=== PATIENT | male | born 1940 | race Caucasian/White ===

== ENCOUNTER 2022-11-11 07:08 | Day surgery (SDC) | payer OTHER ==
[~2022-11-11] VITALS: Ht 162.6 cm; Wt 68.0 kg
[~2022-11-11 07:08] MED LIST: CEFAZOLIN SOD 1 GM in D5W 50 ML IV ONE
[2022-11-11] MEDS ORDERED: BUPIVACAINE /PF 0.25% 30 ML VIAL INJ ONE (07:44)
[2022-11-11] MEDS ORDERED: fentaNYL CITRATE/PF 100 MCG/2 ML AMP ONE (07:44)
[2022-11-11] MEDS ORDERED: DESFLURANE 15 MIN GAS INH ONE (07:44)
[2022-11-11] MEDS ORDERED: SUCCINYLCHOLINE CHLORIDE 20 MG/ML(QUELICIN) ONE (07:44)
[2022-11-11] MEDS ORDERED: PROPOFOL 200MG/ 20ML VIAL (DIPRIVAN) IV ONE (07:44)
[2022-11-11] MEDS ORDERED: MIDAZOLAM HCL 5 MG/ML VIAL (VERSED) IV ONE (07:44)
[2022-11-11] MEDS ORDERED: LR 1,000 ML IV.SOLN IV ONE (07:44)
[2022-11-11] MEDS ORDERED: NS IRRIG SOLN 1000 ML IR ONE (07:44)
[2022-11-11] MEDS ORDERED: ceFAZolin SODIUM 1 GM VIAL ONE (07:44)
[2022-11-11] MEDS ORDERED: HYDROMORPHONE HCL IN 0.9% NACL 0.2 MG/ML DRIP IV ONE (07:44)
[2022-11-11] MEDS ORDERED: NS 1000 ML IV.SOLN IV ONE (07:44)
[2022-11-11] MEDS ORDERED: WATER FOR IRRIGATION,STERILE 1,000 ML IRRIG.SOLN IR ONE (07:44)
[2022-11-11] MEDS ORDERED: ROCURONIUM BROMIDE 10 MG/ML (ZEMURON) ONE (07:44)
[2022-11-11] MEDS ORDERED: ONDANSETRON HCL 4 MG/2 ML VIAL ONE (07:44)
[2022-11-11] MEDS ORDERED: SUGAMMADEX SODIUM 200 MG/2 ML VIAL IV ONE (07:44)
[2022-11-11] MEDS ORDERED: ACETAMINOPHEN I.V. 1000 MG 100 ML IV ONE (08:02)
[2022-11-11] MEDS ORDERED: D5/0.45 NS 1,000 ML IV SCH (10:15)
[2022-11-11] MEDS ORDERED: ACETAMINOPHEN 325 MG TABLET PO PRN (10:15)
[2022-11-11] MEDS ORDERED: HYDROmorphone 1 MG/ML INJ. CARTRIDGE IVP PRN ×3 (10:15)
[2022-11-11] MEDS ORDERED: HYDROcodone/ACETAMIN 5-325 MG TAB (NORCO/ VICODIN) PO PRN ×2 (10:15)
[2022-11-11] MEDS ORDERED: HYDROmorphone 2 MG/ML VIAL IVP PRN (10:15)
[2022-11-11] MEDS ORDERED: ONDANSETRON HCL 4 MG/2 ML VIAL IVP PRN ×2 (10:15)
--- NOTE | 2022-11-11 11:31 | NUR ---
report received SBAR from [employer]. obtained VS. dressing clean dry intact
[2022-11-11 11:36] VITALS: BP_SYST 134
[2022-11-11] MEDS ORDERED: DONE10TA44 PO (12:09)
[2022-11-11] MEDS ORDERED: MEMA5TAB PO (12:09)
[2022-11-11] MEDS ORDERED: AMLO5TAB4 PO (12:09)
--- NOTE | 2022-11-11 12:19 | NUR ---
IVF STARTED IVF ORDERED.
--- NOTE | 2022-11-11 14:23 | NUR ---
MEDICATION CALLED PHARMACY FOR ANCEF THEY WILL BRING TO THE FLOOR
[2022-11-11] MEDS: CEFAZOLIN 1 GM IVPB PREMIX 50 ML IV SCH ×2 (15:10→21:39)
[2022-11-11] MEDS ORDERED: amLODIPine BESYLATE 5 MG TABLET PO ONE (16:30)
--- NOTE | 2022-11-11 19:39 | NUR ---
closing note Provided SBAR to night RN. Patient in bed, respirations even, non labored, bed in low and locked position, call light within reach, bed alarm on. is bedside. endorsed to night RN. that patient has not ambulated yet and to attempt to ambulate patient also diet can be advanced as tolerated.
[2022-11-11 20:00] VITALS: BP_SYST 125
[2022-11-11] MEDS ORDERED: MEMANTINE HCL 5 MG TABLET PO SCH (21:00)
[2022-11-11] MEDS ORDERED: DONEPEZIL HCL 5 MG TABLET (ARICEPT) PO SCH (21:00)
[2022-11-11] MEDS: FAMOTIDINE PF 20 MG/2 ML VIAL IVP SCH (21:45)
[2022-11-12 00:30] VITALS: BP_SYST 141
[2022-11-12] MEDS ORDERED: TEMAZEPAM 15 MG CAPSULE PO PRN (02:30)
[2022-11-12 05:52] LABS: BASOPHILS % (AUTO) 0.2 % (0.0-2.0); HEMATOCRIT 36.4 % (36-54); HEMOGLOBIN 12.2 g/dL (14.0-18.0); LYMPHOCYTES # (AUTO) 1.6 K/uL (1.0-5.5); LYMPHOCYTES % (AUTO) 10.2 % (20.5-51.5); MEAN CORPUSCULAR HEMOGLOBIN 31 pg (27-31); MEAN CORPUSCULAR HGB CONC 34 % (32-36); MEAN CORPUSCULAR VOLUME 92 fL (79.0-98.0); MONOCYTES # (AUTO) 0.9 K/uL (0.0-1.0); MONOCYTES % (AUTO) 6.1 % (1.7-9.3); NEUTROPHILS # (AUTO) 13.1 K/uL (1.8-7.7); NEUTROPHILS % (AUTO) 83.5 % (40.0-70.0); PLATELET COUNT (AUTO) 221 K/uL (130-430); RED BLOOD CELL COUNT(AUTO) 3.95 MIL/uL (4.2-6.2); RED CELL DISTRIBUTION WIDTH 14.8 % (9.0-15.0); WHITE BLOOD COUNT (AUTO) 15.6 K/uL (4.8-10.8)
[2022-11-12 06:24] LABS: ALANINE AMINOTRANSFERASE 95 U/L (12-78); ALBUMIN 3.3 g/dL (3.4-4.8); ANION GAP 11 (5-15); ASPARTATE AMINOTRANSFERASE 57 U/L (10-37); CALCIUM 8.6 mg/dL (8.4-11.0); CHLORIDE 100 mmol/L (98-107); CREATININE 1.08 mg/dL (0.55-1.30); GLUCOSE 120 mg/dL (70-99); TOTAL BILIRUBIN 0.6 mg/dL (0.0-1.0); UREA NITROGEN, BLOOD 18 mg/dL (8-21)
--- NOTE | 2022-11-12 06:43 | NUR ---
SHIFT NOTES: Patient was received during change of shift. Patient is Post-OP following a Lap Cholecystectomy. Patient is AA&Ox4 able to make needs known, with family and call light within reach. Patient denies any pain or distress at this time and chest rise is even and unlabored on RA. PIV noted to RF patent and infusing fluids as ordered. Surgical site is covered and C/D/I. Safety measures are in place as per protocol. Will monitor. 2200: Patient has been assessed as indicated and patient has received evening medications as ordered. Patient reported moderate pain so PRN pain relief was also administered at this time. Will continue to monitor. 0000: Patient is anxious and restless. Patient continue to attempt to get out of bed with out assistance. Will try to call MD and get something for sleep. Will continue to monitor. 0200: Dr. Wolf was called and new orders were received for restoril. Orders noted and carried out: 0400: Patient was able to relax some and was ambulated to bathroom.
[2022-11-12 08:00] VITALS: BP_SYST 135
[2022-11-12] MEDS ORDERED: amLODIPine BESYLATE 5 MG TABLET PO SCH (09:00)
[2022-11-12] MEDS: FAMOTIDINE PF 20 MG/2 ML VIAL IVP SCH (09:12)
[2022-11-12 10:08] VITALS: BP_SYST 135
--- NOTE | 2022-11-12 11:45 | NUR ---
1115 Patient in bed awake and alert x 4. Able to ambualte independently patient seen by Dr. Bray, per Dr. Bray patient cleared to discharge home and follow up in 10 days and continue home meds no new medication prescription, family and patient made aware and verbalizes understanding. Discharge instructions, paperwork, and belongings given to patient and family. Patient taken home by family in private vehicle.
== END 2022-11-12 11:15 | disposition home or self-care (01) ==
LOC: SDS 07:08 → SMU 07:11 → SDS 11-12 11:15
PROVIDERS: ATTEND Colon & Rectal Surgery
DX: K80.10 Calculus of gallbladder with chronic cholecystitis without obstruction (principal); K40.30 Unilateral inguinal hernia, with obstruction, without gangrene, not specified as recurrent; K42.0 Umbilical hernia with obstruction, without gangrene; E11.9 Type 2 diabetes mellitus without complications; I10 Essential (primary) hypertension; F03.90 Unspecified dementia, unspecified severity, without behavioral disturbance, psychotic disturbance, mood disturbance, and anxiety; Z79.899 Other long term (current) drug therapy
CPT/HCPCS: 87081; 49592; 47562; 49507; 80053; 85025; 36415; 88304; C1781; J3490 ×4; J0690 ×2; J2405; J2704; J0330; J3010; Q9967; J7060; J7120; J7030; C1758; C1727; J0131; J2250